=== PATIENT | male | born 1965 | race Caucasian/White ===

== ENCOUNTER → 2018-05-03 | Outpatient (CLI) | payer OTHER ==
--- NOTE | 2018-05-03 13:01 | US ---
EXAMINATION TYPE: US abdomen complete DATE OF EXAM: 05/03/2018 COMPARISON: NONE CLINICAL HISTORY: 52-year-old male R19.07 Abd Mass, Dr. Elliott spleen enlargement TECHNIQUE: Multiple sonographic images of the abdomen are obtained. FINDINGS: EXAM MEASUREMENTS: Liver Length: 16.4 cm Gallbladder Wall: 0.3 cm CBD: 0.4 cm Spleen: 26.5 cm Right Kidney: 11.0 x 5.1 x 5.0 cm Left Kidney: 10.5 x 3.8 x 4.5 cm Pancreas: Obscured by bowel gas Liver: wnl Gallbladder: Numerous small polyps measuring up to 7 x 4 mm. No shadowing calculi, abnormal distentio n, wall thickening, or surrounding fluid. Evidence for sonographic Marquez's sign: no CBD: wnl Spleen: splenomegaly, severely enlarged. Right Kidney: No hydronephrosis. Left Kidney: wnl Upper IVC: wnl Abd Aorta: The proximal abdominal aorta measures 2.7 cm which is ectatic. The bifurcation is obscured by overlying bowel gas IMPRESSION: 1. Severe splenomegaly at 26.5 cm. Appropriate clinical correlation recommended. 2. Multiple gallbladder wall polyps measuring up to 7 mm. Six-month follow-up gallbladder ultrasound recommended to ensure stability. 3. Mildly ectatic upper abdominal aorta at 2.7 cm.
== END | disposition home or self-care (01) ==
LOC: RADUSWWP 08:08
PROVIDERS: ATTEND Family Medicine
DX: K82.4 Cholesterolosis of gallbladder (principal); I77.811 Abdominal aortic ectasia; R16.1 Splenomegaly, not elsewhere classified
CPT/HCPCS: 76700

== ENCOUNTER → 2018-05-16 | Outpatient (CLI) | payer OTHER ==
--- NOTE | 2018-05-17 03:49 | CT ---
EXAMINATION TYPE: CT ChestAbdPelvis w con, CT abdomen pelvis wo con DATE OF EXAM: 05/16/2018 COMPARISON: Ultrasound 05/03/2018 HISTORY: 52-year-old male with pulmonary nodule intermittent fevers X 18 months, recent dx of splenom egaly, TECHNIQUE: Contiguous axial scanning of the abdomen and pelvis initially without contrast. Subsequent scanning of the chest, abdomen, and pelvis performed with IV Contrast, patient injected with 100 mL of Isovue 300. Delayed images through the kidneys were obtained. Coronal/sagittal reconstructions per formed. CT DLP: 928.9 (accession [id number]), 467.6 (accession [id number]) mGycm Automated exposure control for dose reduction was used. FINDINGS: CHEST: Heart normal size without pericardial effusion. Aorta normal caliber with conventional arch vessel branching anatomy. The graft numerous bilateral ax illary lymph nodes are present though these are not enlarged by CT size criteria. The increased numbe r remain suspicious. Additional diffuse mediastinal and bilateral hilar lymphadenopathy. These measure up to 1.2 cm right paratracheal region, 1.4 cm left tracheobronchial angle, and 2.0 cm subcarinal region. 1 cm right hil ar and 1.2 cm left hilar. Evaluation of the lungs shows scattered nodular and patchy areas of groundglass and additional patchy areas of consolidation especially in the mid and lower lungs. 6 mm right lower lobe pulmonary nodule axial image 30. No pleural effusion. ABDOMEN: Liver mildly enlarged measuring 18.5 cm. No focal lesion or biliary ductal dilatation. Portal venous system is patent. The numerous gallbladder wall polyps seen on patient's ultrasound are not evident by CT. Follow-up ul trasound is recommended to ensure stability. Adrenal glands, kidneys, and pancreas appear within normal limits. Redemonstrated massive splenomegaly measuring up to 24.0 cm on coronal series. No dilated small bowel, free fluid, or free air. Normal appendix. Scattered mild stool. Oral contrast progressed to the cecum. No pericolonic inflamma tory change. Diffuse abdominal lymphadenopathy. Lymph nodes measure up to 1.3 cm retrocrural, 9 mm gastrohepatic l igament, 1.8 cm diane hepatic, 2.3 cm portacaval, 1.8 cm retroperitoneal, 1.8 cm mesenteric, 9 mm rig ht common iliac, 1.1 cm left common iliac. PELVIS: Bladder partially urine distended. Prostate gland enlarged at 5.3 cm wide. No abnormal fluid collecti on in the pelvis. Mildly enlarged bilateral external iliac chain lymph nodes measuring 1.4 cm on the right and 1.2 cm o n the left. A few nonenlarged inguinal lymph nodes are noted. BONES: Mild degenerative changes at the hips. No osseous destructive process. Degenerative disc disease thro ughout. Trace grade 1 retrolistheses throughout the lumbar spine from L2 through L5 levels. Scattered small endplate Schmorl's nodes mid to lower thoracic spine. IMPRESSION: 1. GENERALIZED LYMPHADENOPATHY IN THE MEDIASTINUM AND HILAR REGIONS (UP TO 2.0 CM), UPPER ABDOMEN (UP TO 2.3 CM), RETROPERITONEUM AND MESENTERY (UP TO 1.8 CM), AND ALONG THE ILIAC CHAINS (MEASURING UP T O 1.4 CM). AXILLARY LYMPH NODES ARE SUSPICIOUS DUE TO THEIR INCREASED NUMBER THOUGH THEY ARE NOT ENLA RGED BY SIZE CRITERIA. 2. MASSIVE SPLENOMEGALY AT 24.0 CM. CORRELATE FOR LYMPHOMA. 3. DIFFUSE PATCHY AND NODULAR GROUNDGLASS AND PATCHY AREAS OF CONSOLIDATION THROUGHOUT THE LUNGS ELMA CIALLY IN THE LOWER LUNGS. THESE ARE NONSPECIFIC FINDINGS AND COULD REPRESENT MULTIFOCAL PNEUMONIA, I NTERSTITIAL PNEUMONITIS, ASPIRATION, OR EVEN LYMPHOMATOUS INVOLVEMENT. FINDINGS SHOULD BE CORRELATED WITH PATIENT'S SYMPTOMS AND REASSESSED AT FOLLOW-UP. A 6 MM RIGHT LOWER LOBE PULMONARY NODULE SHOULD ALSO BE FOLLOWED. 4. GALLBLADDER WALL POLYPS SEEN ON ULTRASOUND OF 05/03/[address]. APPROPRIATE ULTRAS OUND FOLLOW-UP RECOMMENDED. 5. MILD HEPATOMEGALY (18.5 CM). PROSTATOMEGALY (5.3 CM).
== END | disposition home or self-care (01) ==
LOC: RADCTMAIN 15:12
PROVIDERS: ATTEND Family Medicine
DX: R16.2 Hepatomegaly with splenomegaly, not elsewhere classified (principal); R59.0 Localized enlarged lymph nodes; R91.1 Solitary pulmonary nodule; N40.0 Benign prostatic hyperplasia without lower urinary tract symptoms
CPT/HCPCS: 71260; 74176; 74177; Q9967

== ENCOUNTER 2018-05-30 10:58 | Day surgery (SDC) | payer OTHER ==
[2018-05-29 09:25] VITALS: BMI 24.0
[~2018-05-30 10:58] MED LIST: LACTATED RINGERS 1,000 ML IV SCH; LIDOCAINE 1% 20 ML VIAL (10MG/ML) FOR IV START INTRADERMA PRN
[2018-05-30 11:18] VITALS: RESP 16; TEMP 97.5
[2018-05-30] MEDS ORDERED: LIDOCAINE 1% INJ 10MG/ML (20 ML MDV) ONE (12:00)
[2018-05-30] MEDS ORDERED: MIDAZOLAM 2 MG/2 ML VIAL ONE (12:00)
[2018-05-30] MEDS ORDERED: fentaNYL (PF) 50 MCG/ML 2 ML AMP ONE (12:00)
[2018-05-30] MEDS ORDERED: PROPOFOL 10 MG/ML 20 ML VIAL IV ONE (12:00)
[2018-05-30 13:22] VITALS: BP 105/61; PULSE 65
[2018-05-30 13:29] LABS: Basophils # (A) 0.1 k/uL (0-0.2); Basophils % (A) 0 %; Eosinophils # (A) 0.1 k/uL (0-0.7); Eosinophils % (A) 1 %; HCT 44.9 % (39.0-53.0); HGB 14.4 gm/dL (13.0-17.5); Lymphocytes # (A) 7.5 k/uL (1.0-4.8); Lymphocytes % (A) 60 %; MCH 27.9 pg (25.0-35.0); MCHC 32.1 g/dL (31.0-37.0); MCV 86.8 fL (80.0-100.0); Mean Platelet Volume 8.8; Monocytes # (A) 0.4 k/uL (0-1.0); Monocytes % (A) 3 %; Neutrophils % (A) 32 %; RBC 5.17 m/uL (4.30-5.90); RDW 14.5 % (11.5-15.5); WBC 12.6 k/uL (3.8-10.6)
[2018-05-30 13:52] LABS: Platelet Count 73 k/uL (150-450)
--- NOTE | 2018-06-21 14:30 | P.PCN ---
Date of Procedure: 05/30/18 Preoperative Diagnosis: hypogammoglobulinemia Postoperative Diagnosis: hypogammoglobulinemia Procedure(s) Performed: Bone marrow biopsy and aspirate Surgeon: Uli Juarez Estimated Blood Loss (ml): 0 Pathology: other Condition: stable Disposition: same day Indications for Procedure: Splenomegaly, leukocytosis, lymphadenopathy Description of Procedure: Patient was placed in the left lateral decubitus position, and area over the right posterior iliac crest was prepped and draped in sterile fashion using Betadine and alcohol. Subcutaneous anesthesia with progressive anesthesia injected to the underlying periosteum was performed with lidocaine. An approximately 3-5 mm incision was made with scalpel, Jamshidi needle was entered into the bone marrow cavity. Approx 5 cc of liquid marrow was aspirated from the bone marrow, sent for hematological studies, flow cytometry and cytogenetics. Needle was advanced further into the marrow for a core specimen to be obtained. Adequate core specimen obtained. Patient tolerated conscious sedation well, under the care of anesthesia. No blood loss. Observation and discharge in stable condition. Education on Self care post bone marrow provided by Nursing
== END 2018-05-30 13:42 | disposition home or self-care (01) ==
LOC: OR 10:58
PROVIDERS: ATTEND Internal Medicine Hematology & Oncology
DX: C85.90 Non-Hodgkin lymphoma, unspecified, unspecified site (principal); D80.1 Nonfamilial hypogammaglobulinemia; R16.1 Splenomegaly, not elsewhere classified; K21.9 Gastro-esophageal reflux disease without esophagitis; Z87.01 Personal history of pneumonia (recurrent); Z79.899 Other long term (current) drug therapy; Z88.0 Allergy status to penicillin
CPT/HCPCS: 85025; 38222; J2250; J2001; J3010; J2704

== ENCOUNTER → 2018-07-11 | Outpatient (CLI) | payer OTHER ==
--- NOTE | 2018-07-11 09:54 | XR ---
EXAMINATION TYPE: XR chest 2V DATE OF EXAM: 07/11/2018 COMPARISON: 05/31/2018 INDICATION: Pneumonia, history of leukemia and lymphoma TECHNIQUE: Frontal and lateral views of the chest are obtained. FINDINGS: The heart size is normal. The pulmonary vasculature is normal. There is some platelike atelectasis in the left base. This may be within both the right middle lobe a nd the right lower lobe on the lateral projection. No other infiltrate is evident. IMPRESSION: 1. Linear opacities at the right lung base anterior and posterior lateral projection can be compatibl e with plate atelectasis.
== END | disposition home or self-care (01) ==
LOC: RADXRMAIN 09:33
PROVIDERS: ATTEND Nurse Practitioner Adult Health
DX: D80.1 Nonfamilial hypogammaglobulinemia (principal); R91.8 Other nonspecific abnormal finding of lung field; C91.10 Chronic lymphocytic leukemia of B-cell type not having achieved remission; R16.1 Splenomegaly, not elsewhere classified; Z87.01 Personal history of pneumonia (recurrent)
CPT/HCPCS: 71046

== ENCOUNTER → 2018-09-18 | Outpatient (CLI) | payer OTHER ==
--- NOTE | 2018-09-18 11:32 | CT ---
EXAMINATION TYPE: CT sinus w con DATE OF EXAM: 09/18/2018 COMPARISON: None HISTORY: Chronic sinusitis, fever, leukemia CT DLP: 609.4 mGycm CONTRAST: 100 mL of Isovue 300 The paranasal sinuses are examined in the axial plane at 2 mm thick sections. Reconstructed images i n the coronal plane were obtained. There is very minimal dental amalgam scatter artifact There is filling of the inferior maxillary sinuses bilaterally with retention cysts. Small air-fluid levels not entirely excluded within the maxillary sinuses. The ethmoid air cells are clear. The sph enoid sinuses are clear. The right frontal sinus has a retention cyst present. The septum is evaluated. There is septal deviation to the posterior left. The ostiomeatal units are patent. No abnormal enhancement is evident. IMPRESSIONS: 1. Large retention cyst nearly filling the maxillary sinuses. Small air-fluid level within the maxil althea sinuses may be present. 2. Retention cyst within the left frontal sinus.
== END | disposition home or self-care (01) ==
LOC: RADCTMAIN 09:40
PROVIDERS: ATTEND Internal Medicine Hematology & Oncology
DX: J34.1 Cyst and mucocele of nose and nasal sinus (principal); Z88.0 Allergy status to penicillin
CPT/HCPCS: 82565; 84520; 36415; 70487; Q9967

== ENCOUNTER → 2018-12-11 | Outpatient (CLI) | payer OTHER ==
--- NOTE | 2018-12-11 16:21 | CT ---
EXAMINATION TYPE: CT chest w con DATE OF EXAM: 12/11/2018 COMPARISON: 05/16/2018 HISTORY: 53-year-old male leukemia leukemia TECHNIQUE: Contiguous axial scanning of the chest after the administration of 100 mL of Isovue 300. Coronal/sagittal reconstructions performed. CT DLP: 372.3mGycm. Automatic exposure control utilized for a dose reduction. FINDINGS: Heart normal size without pericardial effusion. Aorta normal caliber with conventional arch vessel branching anatomy. Improving mediastinal lymphadenopathy. Right paratracheal lymph node measures 6 mm versus 1.2 cm, pre viously. Left tracheobronchial angle lymph node measures 7 mm versus 1.4 cm, previously. Left axillar y lymph nodes also show improvement currently measuring up to 9 mm short axis versus 1.2 cm, previous ly. No progressive thoracic lymphadenopathy. Patchy airspace opacity posterior lung bases show some improvement but persists. Similar patchy airsp andrea opacity right middle lobe. Focal lobulated thickening along the endplate density within the left lower lobe measures 2.8 x 1.8 c m versus 1.5 x 1.1 cm, previously. 5 mm right midlung pulmonary nodule is unchanged, axial image 33. No pleural effusion. Improvement in the previous splenomegaly. Residual splenic medically at 17.3 cm versus 21.7 cm, previously. Splenule. Improving but persistent upper abdominal lymphadenopathy curren tly measuring up to 8 mm versus 1.3 cm, previously. Bones: No osseous destructive process. IMPRESSION: 1. Mediastinal lymphadenopathy has improved (for example, currently measuring up to 7 mm versus 1.4 c m, previously). 2. Residual upper abdominal lymphadenopathy remains measuring up to 8 mm. There has been improvement here as well previously measuring up to 1.3 cm. 3. Improving splenomegaly (17.3 cm now versus 21.7 cm, previously). 4. Patchy airspace disease posterior lung bases shows slight improvement and could represent leukemic infiltrates. 5. Patchy airspace disease in the right middle lobe is similar. 6. Lobulated area of focal thickening along a bandlike density in the left lower lobe, however, is la rger at 2.8 cm versus 1.5 cm, previously. Infectious/inflammatory etiology is possible. Continued joe rt interval follow-up recommended.
== END | disposition home or self-care (01) ==
LOC: RADCTMAIN 13:15
PROVIDERS: ATTEND Internal Medicine Hematology & Oncology
DX: C91.10 Chronic lymphocytic leukemia of B-cell type not having achieved remission (principal); Z88.0 Allergy status to penicillin
CPT/HCPCS: 82565; 84520; 71260; 36415; Q9967

== ENCOUNTER → 2019-04-18 | Outpatient (CLI) | payer BC ==
--- NOTE | 2019-04-21 10:22 | MR ---
EXAMINATION TYPE: MR shoulder RT wo con DATE OF EXAM: 04/18/2019 COMPARISON: Radiograph 04/15/2019 HISTORY: 53-year-old male with right shoulder pain, Dislocation TECHNIQUE: Multiplanar, multisequence imaging of the right shoulder is performed without contrast. FINDINGS: The long head biceps tendon appears intact and remain situated along the bicipital groove. There is suggestion of partial tearing involving the superior third subscapularis tendon fibers. The majority of the subscapularis tendon remains intact. Moderate degenerative joint space narrowing with marginal spurring and capsular hypertrophy at the ac romioclavicular joint. There is trace lesion within the subacromial/subdeltoid bursa. Shallow bursal sided tear anterior to mid supraspinatus tendon measuring 1.8 cm long and 1.5 cm AP. This tearing is less than 25% of the te ndon thickness. No full-thickness rotator cuff tear is identified. However, there is nondisplaced comminuted fracture of the greater tuberosity with patchy marrow edema and some adjacent hematoma demonstrated. No sizable Hill-Sachs deformity. However, there is thickening and heterogeneity of the coracohumeral ligament as well as the axillary recess. Middle glenohumeral ligament is not well seen. There may be a small tear of the glenoid labrum at the anterior superior quadrant versus more likely sublabral foramen. No osseous loss is identified along the anterior inferior glenoid. Again, there is extensive heteroge neity and thickening and poor delineation to the axillary recess. Small glenohumeral joint effusion. No os acromiale. Patchy red marrow is present. No suspicious bone marrow replacement. IMPRESSION: 1. Comminuted, nondisplaced greater tuberosity fracture with associated adjacent soft tissue hemorrha ge. Radiographic follow-up is recommended to ensure that the bone fragments remain in place. Displace ment of the fragments would constitute a functional rotator cuff tear. 2. Shallow bursal sided tearing/fraying involving the anterior to mid supraspinatus tendon. The tear measures less than 25% of the tendon thickness. No full-thickness tear identified. 3. Additional partial tearing superior fibers of the subscapularis tendon. The majority of the subsca pularis tendon remains intact. 4. Moderate sprain of the inferior glenohumeral ligament. No extravasating fluid is identified to sug gest a complete tear. Additional sprain of the coracohumeral ligament. The middle glenohumeral ligame nt is not well seen. 5. No sizable Hill-Sachs deformity. No bone loss identified along the glenoid. Suspect a sublabral fo ramen along the anterior superior quadrant of the labrum rather than small labral tear.
== END | disposition home or self-care (01) ==
LOC: RADMRIMAIN 13:44
PROVIDERS: ATTEND Orthopaedic Surgery
DX: S42.254A Nondisplaced fracture of greater tuberosity of right humerus, initial encounter for closed fracture (principal)

== ENCOUNTER → 2019-10-29 | Outpatient (CLI) | payer BC ==
--- NOTE | 2019-10-29 16:30 | CT ---
EXAMINATION TYPE: CT ChestAbdPelvis w con DATE OF EXAM: 10/29/2019 COMPARISON: CT chest 12/11/2018, CT abdomen pelvis 05/16/2018. HISTORY: Right kidney issue, leukemia CT DLP: 1502.5 mGycm Automated exposure control for dose reduction was used. CONTRAST: CT scan of the chest, abdomen and pelvis is performed with Oral Contrast and with IV Contrast, patien t injected with 100 mL of Isovue 300. FINDINGS: LUNGS: The previously demonstrated patchy opacity of the left lower lobe on 12/11/2018 comparison is essentially resolved with area of subsegmental atelectasis. Mild bibasilar atelectasis. 3 mm perifiss ural nodule of the right lower lobe (4:32) previously measured 5 mm on 12/11/2018. No pleural effusio n. No pneumothorax. The tracheobronchial tree is patent. MEDIASTINUM/SOFT TISSUES: Left axillary lymph node measures 10 mm in short axis, unchanged from 12/11. Decreased mediastinal lymphadenopathy. Right paratracheal superior mediastinal lymph nodes jose sure up to 5 mm (3:14), previously 8 mm. Left tracheobronchial lymph node measures 6 mm (3:24), previ ously 7 mm. Right hilar lymph node measures 8 mm, previously 10 mm. Cardiac size is normal. No perica rdial effusion. No thoracic aortic aneurysm. LIVER: Again measures up to 18.5 cm craniocaudal. No focal lesion. BILIARY SYSTEM: Normal. PANCREAS: Normal. SPLEEN: Significantly decreased in size measuring up to 16.0 cm craniocaudal, previously 24.[address] comparison. Splenule. ADRENALS: Normal. KIDNEYS: Normal. BOWEL: No evidence of obstruction or thickening. Normal appendix. PERITONEUM: No free fluid. No pneumoperitoneum. LYMPH NODES: Significantly decreased size of abdominal pelvic lymph nodes, with no lymphadenopathy b y size criteria. Largest mesenteric lymph node measures up to 5 mm. Numerous nonenlarged mesenteric a nd retroperitoneal lymph nodes are seen. PELVIS: Normal. VASCULATURE: No abdominal aortic aneurysm. MUSCULOSKELETAL: No aggressive osseous destructive lesion. Degenerative changes of the spine. IMPRESSION: 1. Significantly decreased size of mediastinal and right hilar lymph nodes versus 12/11/2018. 2. Significant decreased size of abdominopelvic lymph nodes versus 05/16/2018 comparison, with no lymp h nodes meeting size criteria for overt lymphadenopathy. 3. Decreased size of the spleen measuring up to 16.0 cm, previously 24.0 cm on 05/16/2018. 4. No evidence of new metastatic disease of the chest, abdomen, pelvis, or osseous structures.
== END | disposition home or self-care (01) ==
LOC: RADCTMAIN 07:54
PROVIDERS: ATTEND Internal Medicine Hematology & Oncology
DX: C91.10 Chronic lymphocytic leukemia of B-cell type not having achieved remission (principal); Z88.0 Allergy status to penicillin
CPT/HCPCS: 82565; 84520; 71260; 74177; 36415; Q9967

== ENCOUNTER → 2021-03-09 | Outpatient (CLI) | payer BC ==
[~2021-03-09] MED LIST changes: -LACTATED RINGERS 1,000 ML IV SCH; -LIDOCAINE 1% 20 ML VIAL (10MG/ML) FOR IV START INTRADERMA PRN; +TIXAGEVIMAB/CILGAVIMAB (EUA) 300 MG/3 ML COMBO.PKG IM NR; +TIXAGEVIMAB/CILGAVIMAB (EUA) 300 MG/3 ML COMBO.PKG IM ONE
[2021-03-09 10:05] VITALS: BP 145/93; PULSE 64; RESP 16; TEMP 97.4
== END | disposition home or self-care (01) ==
LOC: PROCWHC3 09:29
PROVIDERS: ATTEND Registered Nurse Oncology
DX: U07.1 COVID-19 (principal)
CPT/HCPCS: 96372

== ENCOUNTER → 2021-09-24 | Outpatient (CLI) | payer BC ==
--- NOTE | 2021-09-24 12:29 | CT ---
EXAMINATION TYPE: CT ChestAbdPelvis wo/w con DATE OF EXAM: 09/24/2021 INDICATION: Chronic Lymphocytic leukemia of b-cell COMPARISON: 10/14/2020 CT DLP: Not Available due to machine error mGycm CONTRAST: Performed with Oral Contrast and without and with IV Contrast, patient injected with 100 ml mL of Iso aurelio 300. TECHNIQUE: Axial images at 5 mm thick sections. Reconstructed images in the coronal plane. Delayed images through the kidneys. FINDINGS: CT CHEST: Portion of the thyroid visualized is normal. There is a 0.3 this was present previously. Cm nodule along the major fissure on the right. Series 10 image 30. No enlarged mediastinal or hilar adenopathy is evident. The ascending aorta diameter at the level of the main pulmonary artery is 3.4 cm. The main pulmonary artery diameter at the bifurcation is 2.[address] ABDOMEN: Liver: Normal Spleen: Enlarged measuring 16.9 cm. Normal less than 12.5 cm. Small splenule at splenic hilum. Pancreas: Normal Adrenal glands: The adrenal glands are normal. Gallbladder: Normal Kidneys: No masses are evident. No hydronephrosis is present. No cysts are present. No renal stone s are identified. Postcontrast imaging is performed. No suspicious renal enhancement Aorta: Vascular calcification is within the aorta. Inferior vena cava: Normal. CT PELVIS: Loops of bowel within the abdomen and pelvis are normal. There are loops of bowel which are incom pletely distended or lack oral contrast limiting their evaluation. Appendix: Normal as visualized. Urinary bladder: Normal. Genitourinary structures: Prostate has mild prominence. Osseous structures: No suspicious lytic or sclerotic lesions. No abnormal enhancement is evident IMPRESSIONS: 1. Splenomegaly. 2. Stable tiny nodule within the major fissure on the right may be a small lymph node. 3. No significant change from comparison
== END | disposition home or self-care (01) ==
LOC: RADCTMAIN 09:03
PROVIDERS: ATTEND Internal Medicine Hematology & Oncology
DX: C91.10 Chronic lymphocytic leukemia of B-cell type not having achieved remission (principal)
CPT/HCPCS: 82565; 84520; 71270; 74178; 36415; Q9967

== ENCOUNTER → 2022-12-20 | Outpatient (CLI) | payer BC ==
[2022-12-20 08:16] LABS: African American GFR (CKD) 81 (>60 ml/min/1.73 sqM); Blood Urea Nitrogen 16 mg/dL (9-20); Non-African American GFR(CKD) 70 (>60 ml/min/1.73 sqM)
--- NOTE | 2022-12-20 10:01 | CT ---
EXAMINATION TYPE: CT ChestAbdPelvis w con DATE OF EXAM: 12/20/2022 COMPARISON: 09/24/2021, 10/14/2020, 10/29/2019 HISTORY: 57-year-old male C91.1, Chronic Lymphocytic Leukemia TECHNIQUE: Contiguous axial scanning of the chest, abdomen, and pelvis performed with IV Contrast, pa tient injected with 100 ml mL of Isovue 300. Delayed images through the kidneys were obtained. [place] l/sagittal reconstructions performed. CT DLP: 1303.90 mGycm Automated exposure control for dose reduction was used. FINDINGS: CHEST: The heart is upper limits of normal in size without pericardial effusion. Aorta normal caliber with conventional arch vessel branching anatomy. Scattered nonenlarged mediastinal lymph nodes and some borderline size lymph nodes measuring up to 1 cm such as along the right paratracheal region remain unchanged. Mildly enlarged 1.6 cm right hilar l ymph node is unchanged. No new or progressive thoracic lymphadenopathy is seen. Mild emphysematous change. Mild dependent atelectasis. 4 mm right midlung pulmonary nodule is unchanged. There is new patchy opacity anterior basilar right middle lobe. Increasing mild patchy bibasilar grou ndglass and some patchy densities no pleural effusion. ABDOMEN: No focal liver lesion or biliary ductal dilatation. Portal venous system is patent. Gallbladder, adrenal glands, kidneys, and pancreas within normal limits. Spleen is enlarged at 18.4 cm measured on axial series versus 19.0 cm on 09/24/2021 and 17.3 cm on 10/14. Overall not significantly changed. No dilated small bowel, free fluid, or free air. Minimal central abdominal Ivania mesentery and associ ated small mesenteric nodes measuring up to 5 mm remains unchanged. Retroaortic left renal vein. Normal appendix. Mild stool burden. No pericolonic inflammatory change. PELVIS: Bladder urine distended. Prostate gland measures 5.1 cm wide. No abnormal fluid collection in the pel vis or pelvic lymphadenopathy. Small left iliac chain nodes measuring up to 1 cm remain unchanged. BONES: Mild to moderate spondylotic change lumbar spine. No osseous destructive process. IMPRESSION: 1. NEW PATCHY AND GROUNDGLASS DENSITIES IN THE LOWER LUNGS. CORRELATE FOR INTERSTITIAL PNEUMONITIS, A SPIRATION, OR ATYPICAL/COVID PNEUMONIAS. LEUKEMIA CAN ALSO PRESENT LUNG INFILTRATES, CONSIDER 3 MONTH FOLLOW-UP AFTER TREATMENT TO REASSESS. 2. OTHERWISE, A FEW SCATTERED LYMPH NODES THROUGHOUT THE CHEST, ABDOMEN, AND PELVIS REMAIN UNCHANGED BACK TO AT LEAST 10/14/2020. PROMINENT SPLENOMEGALY UP TO 18.4 CM IS RELATIVELY SIMILAR WELL.
== END | disposition home or self-care (01) ==
LOC: RADCTMAIN 07:30
PROVIDERS: ATTEND Internal Medicine Hematology & Oncology
DX: C91.10 Chronic lymphocytic leukemia of B-cell type not having achieved remission (principal); D69.59 Other secondary thrombocytopenia; J32.9 Chronic sinusitis, unspecified; D80.1 Nonfamilial hypogammaglobulinemia; J98.4 Other disorders of lung; R91.8 Other nonspecific abnormal finding of lung field; R16.1 Splenomegaly, not elsewhere classified
CPT/HCPCS: 82565; 84520; 71260; 74177; 36415; Q9967